=== PATIENT | female | born 1990 | race Caucasian/White ===

== ENCOUNTER → 2017-07-22 | Outpatient (CLI) | payer OTHER ==
[~2017-07-22] MED LIST: AMOX500 PO; AMPDEX30CR; ANTOXYBENA RIGHTEAR; ATOM40; Amoxicillin500 MG PO; BENADRYL25 MG PO; BENZ.5; Bactrim 400-801 EACH PO; CEFP250; CEPH500 PO; CLIN150 PO; CLON.2; CODGUAPSEE; DIPH12.5EL; DIVA125EC; DIVA250EC; DOCU100; DOXY100 PO; ESCI10; Flagyl500 MG PO; HYDACE5 PO; HYDHCL25 PO; IBUP800; IBUP800 PO; LEVSOD50; METPRE4DP PO; MULTCH; MULVITA; MULVITMINE PO; Naprosyn500 MG PO; Norco 5-325 Ta1 EACH PO; OLAN2.5; PROM25 PO; Prenatal Compl1 EACH PO; QUET100; SULTRIDS PO; TRAM50 PO; Triamcinolone A15 GM TOP; Veetids 500500 MG PO; ZIPR60; ZIPR80; [UNRECOGNIZED DRUG - OTHER]
[2017-07-25 00:11] LABS: CHLAMYDIA TRACHOMATIS, NAA Negative (Negative); NEISSERIA GONORRHOEAE, NAA Negative (Negative)
== END ==
LOC: LAB 14:46 → LAB SHORT 14:46
PROVIDERS: Registered Nurse Community Health
DX: Z11.3 Encounter for screening for infections with a predominantly sexual mode of transmission (principal); Z34.81 Encounter for supervision of other normal pregnancy, first trimester
CPT/HCPCS: 87491; 87591

== ENCOUNTER → 2017-08-18 | Outpatient (CLI) | payer OTHER ==
[2017-08-22 18:07] LABS: AFP MOM 0.57 (.); AFP VALUE 21.6 ng/mL (.); DIA MOM 1.35 (.); DIA VALUE 207.51 pg/mL (.); DSR (BY AGE) 1 IN 1012 (.); DSR (SECOND TRIMESTER) 1 IN 3943 (.); GEST. AGE ON COLLECTION DATE 17.7 WEEKS (.); GESTAT. AGE BASED ON EDD (.); HCG MOM 0.65 (.); HCG VALUE 16961 mIU/mL (.); INSULIN DEP DIABETES No (.); MATERNAL AGE AT EDD 25.4 yr (.); MULTIPLE GESTATION No (.); OSBR RISK 1 IN 10000 (.); RACE Caucasian (.); RESULTS Report (.); T18 RISK Not increased (.); TEST RESULTS: *Screen Negative* (.); UE3 MOM 0.91 (.); UE3 VALUE 1.03 ng/mL (.); WEIGHT 170 lbs (.)
== END ==
LOC: LAB 16:48 → LAB SHORT 16:48
PROVIDERS: Registered Nurse Community Health
DX: Z34.82 Encounter for supervision of other normal pregnancy, second trimester (principal); Z3A.17 17 weeks gestation of pregnancy
CPT/HCPCS: 82105; 82677; 84702; 86336

== ENCOUNTER → 2017-12-01 | Outpatient (CLI) | payer OTHER | LOC: LAB SHORT 14:10 → LAB 14:10 | DX: N89.8 Other specified noninflammatory disorders of vagina (principal) | CPT/HCPCS: 87070; 87205 ==

== ENCOUNTER → 2017-12-10 | Outpatient (CLI) | payer OTHER | END | disposition home or self-care (01) | LOC: LAB SHORT 11:31 → LAB EV 11:31 | DX: J02.9 Acute pharyngitis, unspecified (principal) | CPT/HCPCS: 87070 ==

== ENCOUNTER → 2017-12-24 | Outpatient (CLI) | payer OTHER | LOC: LAB SHORT 09:59 → LAB 09:59 | DX: Z34.83 Encounter for supervision of other normal pregnancy, third trimester (principal) | CPT/HCPCS: 87081; 87653 ==